=== PATIENT | male | born 1945 | race Caucasian/White ===

== ENCOUNTER 2017-08-02 07:04 | Day surgery (SDC) | payer MEDICARE, BC ==
[2017-08-02] MEDS ORDERED: fentaNYL 100 MCG/2 ML SDV ONE (08:21)
[2017-08-02] MEDS ORDERED: Propofol 200 MG/20 ML SDV ONE (08:21)
[2017-08-02] MEDS ORDERED: Sodium Chloride 0.9% 1,000 ML IV SCH (08:30)
[2017-08-02 10:39] VITALS: BP 154/75
--- NOTE | 2017-08-02 13:41 | OR ---
DATE OF PROCEDURE: 08/02/2017 PROCEDURE: Colonoscopy. FINDINGS: 5 mm polyp, completely removed using cold biopsy forceps, at approximately 70 cm (previous multiple colon resections). COMPLICATIONS: None. [employer]: None. PREOPERATIVE DIAGNOSIS: History of colorectal cancer. POSTOPERATIVE DIAGNOSIS: History of colorectal cancer. RISKS: Risks, benefits, alternatives and limitations including, but limited to infection, bleeding, and perforation were explained to the patient. PROCEDURE IN DETAIL: The patient was placed in left lateral decubitus position. Digital rectal exam was performed without abnormality. The scope was introduced and advanced atraumatically to the ileocecal valve. The scope was brought back to the colon and approximately at 70 cm, which is probably the descending colon; however, the patient has multiple colon surgeries, therefore, the anatomical nomenclature cannot be determined. Nonetheless, this was removed, and no other abnormalities were noted. No abnormalities on retroflexion. The patient tolerated the procedure well. No diverticulosis. No old or new blood. Gordon Edwards MD /[id number]
== END 2017-08-02 10:55 | disposition home or self-care (01) ==
LOC: JP.SDS 07:04
PROVIDERS: ATTEND Surgery
DX: Z12.11 Encounter for screening for malignant neoplasm of colon (principal); D12.4 Benign neoplasm of descending colon; I12.9 Hypertensive chronic kidney disease with stage 1 through stage 4 chronic kidney disease, or unspecified chronic kidney disease; N18.9 Chronic kidney disease, unspecified; F41.9 Anxiety disorder, unspecified; Z85.038 Personal history of other malignant neoplasm of large intestine; Z88.8 Allergy status to other drugs, medicaments and biological substances
CPT/HCPCS: 45380; 88305; J2704; J3010; J7040

== ENCOUNTER 2019-09-13 13:27 | Emergency (ER) | payer BC, MEDICARE ==
[2019-09-13 13:52] VITALS: BP 146/87; PULSE 85
--- NOTE | 2019-09-13 14:17 | EDM.PDOC ---
ED HPI GENERAL MEDICAL PROBLEM - General Chief Complaint: Upper Extremity Injury/Pain Stated Complaint: left forearm pain Time Seen by Provider: 09/13/19 14:12 Source of Information: Reports: Patient, RN Notes Reviewed History Limitations: Reports: No Limitations - History of Present Illness INITIAL COMMENTS - FREE TEXT/NARRATIVE: 74-year-old gentleman presents emergency department today complaint of intermittent pain in his arm as well his his leg on the left side. Known history of CVA last month is currently on daily aspirin did receive TPA therapy he has had no residual deficits from his stroke. He is concerned about a blood clot denies any difficulty breathing - Related Data Allergies Allergy/AdvReac Type Severity Reaction Status Date / Time No Known Allergies Allergy Verified 09/13/19 13:46 Home Meds: Home Meds Simvastatin [Zocor] 20 mg PO BEDTIME 09/15/14 [History] Gabapentin 300 mg PO BID 12/05/15 [History] Atenolol [Tenormin] 25 mg PO DAILY 07/31/17 [History] cephALEXin [Keflex] 250 mg PO BID 07/31/17 [History] Aspirin 1 tab PO DAILY 09/13/19 [History] Carbidopa/Levodopa [Carbidopa-Levodopa 25-100 Tab] 1 tab PO DAILY 09/13/19 [ History] Clopidogrel Bisulfate [Clopidogrel] 1 tab PO DAILY 09/13/19 [History] Donepezil HCl 1 tab PO BEDTIME 09/13/19 [History] amLODIPine Besylate [Amlodipine Besylate] 1 tab PO BEDTIME 09/13/19 [History] Past Medical History HEENT History: Reports: Hard of Hearing, Impaired Vision Cardiovascular History: Reports: High Cholesterol, Hypertension Gastrointestinal History: Reports: Chronic Constipation, Colon Polyp Genitourinary History: Reports: Chronic Renal Insuffiency Musculoskeletal History: Reports: Arthritis Other Musculoskeletal History: Bursitis l hip Neurological History: Reports: CVA Psychiatric History: Reports: PTSD Oncologic (Cancer) History: Reports: Colon Other Oncologic History: colon adenoma Dermatologic History: Reports: Other (See Below) Other Dermatologic History: acne - Infectious Disease History Infectious Disease History: Reports: Chicken Pox, Rheumatic Fever - Past Surgical History Cardiovascular Surgical History: Reports: None GI Surgical History: Reports: Colon, Hernia, Inguinal, Other (See Below) Musculoskeletal Surgical History: Reports: Arthroscopic Knee Other Musculoskeletal Surgeries/Procedures:: left knee Other Oncologic Surgeries/Procedures: Colon CA surgery x2 Dermatological Surgical History: Reports: None Social & Family History - Tobacco Use Smoking Status *Q: Never Smoker - Caffeine Use Caffeine Use: Reports: Coffee Review of Systems - Review of Systems Review Of Systems: See Below Respiratory: Reports: No Symptoms Cardiovascular: Reports: No Symptoms Musculoskeletal: Reports: Arm Pain, Leg Pain Neurological: Reports: No Symptoms ED EXAM, GENERAL - Physical Exam Exam: See Below Free Text/Narrative:: Examination of the left arm and left leg on appreciate any erythema there is no edema I cannot elicit any point tenderness radial pulses +2 there is no edema noted in the lower extremity Exam Limited By: No Limitations General Appearance: Alert, WD/WN, No Apparent Distress Respiratory/Chest: No Respiratory Distress Course - Vital Signs Last Recorded V/S: Last Vital Signs Temp 97.4 F 09/13/19 14:01 Pulse 85 09/13/19 14:01 Resp 13 09/13/19 14:01 BP 146/87 H 09/13/19 14:01 Pulse Ox 95 09/13/19 14:01 - Orders/Labs/Meds Labs: Laboratory Tests 09/13/19 Range/Units 14:27 D-Dimer, Quantitative 146 (0.0-400.0) ng/mL Departure - Departure Time of Disposition: 14:50 Disposition: Home, Self-Care 01 Condition: Good Clinical Impression: Arm pain Qualifiers: Laterality: left Qualified Code(s): M79.602 - Pain in left arm Leg pain Qualifiers: Laterality: left Qualified Code(s): M79.605 - Pain in left leg - Discharge Information Instructions: Musculoskeletal Pain Referrals: Art Cordero MD [Primary Care Provider] - Forms: ED Department Discharge Additional Instructions: Continue with both your aspirin and Plavix as prescribed, please followup with your primary care provider in 3-5 days if not better, please call return to the emergency department with worsening of symptoms. Sepsis Event Note - Evaluation Sepsis Screening Result: No Definite Risk - Focused Exam Vital Signs: Vital Signs Temp Pulse Resp BP Pulse Ox 09/13/19 14:01 97.4 F 85 13 146/87 H 95 09/13/19 13:51 97.4 F 85 13 146/87 H 95 Date Exam was Performed: 09/13/19 Time Exam was Performed: 14:49 - Assessment/Plan Plan: Assessment Acuity = acute Site and laterality = left upper and lower extremity pain intermittent Etiology = unknown Manifestations = none Location of injury = Home Lab values = d-dimer within normal limits at 146 Plan I did review lab work with him elected not to proceed with ultrasound at this time we will continue with both his aspirin and Plavix keep his regular follow- up appointment with his doctor This note was dictated using [employer] voice recognition software please call with any questions on syntax or grammar.
== END 2019-09-13 15:02 | disposition home or self-care (01) ==
LOC: JP.ED 13:27
DX: M79.602 Pain in left arm (principal); M79.605 Pain in left leg; I12.9 Hypertensive chronic kidney disease with stage 1 through stage 4 chronic kidney disease, or unspecified chronic kidney disease; N18.9 Chronic kidney disease, unspecified; E78.00 Pure hypercholesterolemia, unspecified; M19.90 Unspecified osteoarthritis, unspecified site; Z86.73 Personal history of transient ischemic attack (TIA), and cerebral infarction without residual deficits; Z79.899 Other long term (current) drug therapy; Z79.82 Long term (current) use of aspirin; Z79.02 Long term (current) use of antithrombotics/antiplatelets
CPT/HCPCS: 36415; 85379; 99282; 99283

== ENCOUNTER 2019-10-01 01:55 | Emergency (ER) | payer MEDICARE, OTHER ==
[2019-10-01] MEDS ORDERED: Lactated Ringers 1,000 ML IV ONE (02:41)
[2019-10-01] MEDS ORDERED: Sodium Chloride 0.9% 10 ML Syringe FLUSH PRN (02:41)
[2019-10-01] MEDS ORDERED: Ondansetron 4 MG/2 ML SDV IVPUSH ONE (02:41)
[2019-10-01] MEDS ORDERED: Oxymetazoline 0.05% Nasal Spray 30 ML Bottle NAS ONE (02:42)
--- NOTE | 2019-10-01 02:44 | EDM.PDOC ---
ED HPI GENERAL MEDICAL PROBLEM - General Chief Complaint: ENT Problem Stated Complaint: BLOODY NOSE Time Seen by Provider: 10/01/19 02:32 Source of Information: Reports: Patient, RN Notes Reviewed History Limitations: Reports: No Limitations - History of Present Illness INITIAL COMMENTS - FREE TEXT/NARRATIVE: 74-year-old gentleman presents emergency department today complaint of nosebleed , states been ongoing going for the last 2 hours is unable to get it stopped during the exam he did have a large bout of emesis with a syncopal event. He takes combination Plavix and blood thinner denies pain Pain Score (Numeric/FACES): 0 - Related Data Allergies Allergy/AdvReac Type Severity Reaction Status Date / Time No Known Allergies Allergy Verified 10/01/19 02:28 Home Meds: Home Meds Simvastatin [Zocor] 20 mg PO BEDTIME 09/15/14 [History] Gabapentin 300 mg PO BID 12/05/15 [History] cephALEXin [Keflex] 250 mg PO BID 07/31/17 [History] Aspirin 1 tab PO DAILY 09/13/19 [History] Carbidopa/Levodopa [Carbidopa-Levodopa 25-100 Tab] 1 tab PO DAILY 09/13/19 [ History] Clopidogrel Bisulfate [Clopidogrel] 75 mg PO DAILY 09/13/19 [History] amLODIPine Besylate [Amlodipine Besylate] 5 mg PO BEDTIME 09/13/19 [History] Cyclobenzaprine [Flexeril] 10 mg PO ASDIRECTED PRN 10/01/19 [History] Past Medical History HEENT History: Reports: Hard of Hearing, Impaired Vision Cardiovascular History: Reports: High Cholesterol, Hypertension Gastrointestinal History: Reports: Chronic Constipation, Colon Polyp Genitourinary History: Reports: Chronic Renal Insuffiency Musculoskeletal History: Reports: Arthritis Other Musculoskeletal History: Bursitis l hip Neurological History: Reports: CVA Psychiatric History: Reports: PTSD Oncologic (Cancer) History: Reports: Colon Other Oncologic History: colon adenoma Dermatologic History: Reports: Other (See Below) Other Dermatologic History: acne - Infectious Disease History Infectious Disease History: Reports: Chicken Pox, Rheumatic Fever - Past Surgical History Cardiovascular Surgical History: Reports: None GI Surgical History: Reports: Colon, Hernia, Inguinal, Other (See Below) Musculoskeletal Surgical History: Reports: Arthroscopic Knee Other Musculoskeletal Surgeries/Procedures:: left knee Other Oncologic Surgeries/Procedures: Colon CA surgery x2 Dermatological Surgical History: Reports: None Social & Family History - Caffeine Use Caffeine Use: Reports: Coffee ED ROS ENT - Review of Systems Review Of Systems: See Below Constitutional: Reports: No Symptoms HEENT: Reports: Nosebleed Respiratory: Reports: No Symptoms Cardiovascular: Reports: Lightheadedness, Syncope GI/Abdominal: Reports: No Symptoms ED EXAM, ENT - Physical Exam Exam: See Below Text/Narrative:: Blood is appreciated both nares small amount of blood is appreciated in the posterior pharynx lungs are clear heart is regular Exam Limited By: No Limitations General Appearance: Alert, Mild Distress Respiratory/Chest: No Respiratory Distress, Lungs Clear, Normal Breath Sounds, No Accessory Muscle Use, Chest Non-Tender Cardiovascular: Regular Rate, Rhythm, No Murmur ED ENT PROCEDURES - Epistaxis Procedure Indication: Epistaxis Recent anticoagulants/antiplatlets: Yes Uncontrolled HTN: No Recent septal/nasal surgery: No Site of bleeding: Right Nare Clearing of clots: Patient Blew Nose, Suction Anterior Packing: Nasal Tampon Posterior packing: Long Inflatable Nasal Tampon Complications: No Course - Vital Signs Last Recorded V/S: Last Vital Signs Temp 95.5 F 10/01/19 02:56 Pulse 77 10/01/19 02:56 Resp 16 10/01/19 02:56 BP 146/87 H 10/01/19 02:56 Pulse Ox 93 L 10/01/19 02:56 - Orders/Labs/Meds Orders: Active Orders 24 hr Category Date Time Status Peripheral IV Care [RC] . DIRECTED Care 10/01/19 02:41 Active Sodium Chloride 0.9% [Saline Flush] Med 10/01/19 02:41 Active 10 ml FLUSH ASDIRECTED PRN Peripheral IV Insertion Adult [OM.PC] Urgent Oth 10/01/19 02:41 Ordered Medication Orders Sodium Chloride (Saline Flush) 10 ml FLUSH ASDIRECTED PRN PRN Reason: Keep Vein Open Last Admin: 10/01/19 03:05 Dose: 10 ml Labs: Laboratory Tests 10/01/19 10/01/19 10/01/19 Range/Units 02:50 02:50 02:50 WBC 7.2 (4.5-11.0) K/uL RBC 4.65 (4.30-5.90) M/uL Hgb 14.5 D (12.0-15.0) g/dL Hct 43.7 (40.0-54.0) % MCV 94 (80-98) fL MCH 31 (27-31) pg MCHC 33 (32-36) % Plt Count 248 (150-400) K/uL Neut % (Auto) 56 (36-66) % Lymph % (Auto) 35 (24-44) % [place] % (Auto) 8 H (2-6) % Eos % (Auto) 2 (2-4) % Baso % (Auto) 0 (0-1) % PT 10.3 (9.5-12.0) sec INR 0.95 (0.80-1.20) Sodium 141 (140-148) mmol/L Potassium 3.7 (3.6-5.2) mmol/L Chloride 105 (100-108) mmol/L Carbon Dioxide 24 (21-32) mmol/L Anion Gap 12.4 (5.0-14.0) mmol/L BUN 20 H (7-18) mg/dL Creatinine 1.5 H (0.8-1.3) mg/dL Est Cr Clr Drug Dosing 43.21 mL/min Estimated GFR (MDRD) 46 L (>60) Glucose 186 H (74-106) mg/dL Calcium 9.0 (8.5-10.1) mg/dL Meds: Medications Generic Name Dose Route Start Last Admin Trade Name Manav PRN Reason Stop Dose Admin Sodium Chloride 10 ml 10/01/19 02:41 10/01/19 03:05 Saline Flush FLUSH 10 ml ASDIRECTED PRN Administration Keep Vein Open Discontinued Medications Generic Name Dose Route Start Last Admin Trade Name Manav PRN Reason Stop Dose Admin Lactated Ringer's 1,000 mls @ 999 mls/hr 10/01/19 02:41 10/01/19 02:59 Ringers, Lactated IV 10/01/19 03:41 999 mls/hr BOLUS ONE Administration Ondansetron HCl 4 mg 10/01/19 02:41 10/01/19 03:04 Zofran IVPUSH 10/01/19 02:42 4 mg ONETIME ONE Administration Oxymetazoline HCl 1 ml 10/01/19 02:42 10/01/19 03:05 Nasal Decongestant Timber VINEET 10/01/19 02:43 Not Given ONETIME ONE Departure - Departure Time of Disposition: 04:00 Disposition: Home, Self-Care 01 Condition: Fair Clinical Impression: Epistaxis - Discharge Information Instructions: Nosebleed, [id number] Referrals: Art Cordero MD [Primary Care Provider] - Forms: ED Department Discharge Additional Instructions: Stop taking your aspirin while the nasal tampon is in place, recommend follow- up primary care in the next 3 days for reevaluation at which time the nasal tampon should be removed, call or return to the emergency department worsening of symptoms Sepsis Event Note - Evaluation Sepsis Screening Result: No Definite Risk - Focused Exam Vital Signs: Vital Signs Temp Pulse Resp BP Pulse Ox 10/01/19 02:56 95.5 F 77 16 146/87 H 93 L 10/01/19 02:47 95.5 F 78 18 152/92 H 93 L 10/01/19 02:33 95.0 F L 92 16 148/94 H 96 10/01/19 02:10 92 16 148/94 H 96 Date Exam was Performed: 10/01/19 Time Exam was Performed: 03:59 - My Orders Last 24 Hours: My Active Orders 10/01/19 02:41 Peripheral IV Care [RC] . DIRECTED Sodium Chloride 0.9% [Saline Flush] 10 ml FLUSH ASDIRECTED PRN Peripheral IV Insertion Adult [OM.PC] Urgent - Assessment/Plan Last 24 Hours: My Active Orders 10/01/19 02:41 Peripheral IV Care [RC] . DIRECTED Sodium Chloride 0.9% [Saline Flush] 10 ml FLUSH ASDIRECTED PRN Peripheral IV Insertion Adult [OM.PC] Urgent Plan: Assessment Acuity = acute Site and laterality = epistaxis Etiology = unknown may be combination of Plavix and aspirin Manifestations = none Location of injury = Home Lab values = CBC, BMP unremarkable other than creatinine elevated 1.4 consistent with chronic renal failure stage G3 a INR 1 Plan Good improvement with 1 L fluids and placement of a nasal tampon recommend he stop his aspirin while the nasal tampon is in place follow-up primary care 3 to 5 days for reevaluation This note was dictated using [employer] recognition software please call with any questions on syntax or grammar.
[2019-10-01 03:12] VITALS: BP 146/87; PULSE 77
== END 2019-10-01 04:45 | disposition home or self-care (01) ==
LOC: JP.ED 01:55
DX: R04.0 Epistaxis (principal); E78.00 Pure hypercholesterolemia, unspecified; I12.9 Hypertensive chronic kidney disease with stage 1 through stage 4 chronic kidney disease, or unspecified chronic kidney disease; N18.9 Chronic kidney disease, unspecified; Z79.82 Long term (current) use of aspirin; Z86.73 Personal history of transient ischemic attack (TIA), and cerebral infarction without residual deficits; Z79.899 Other long term (current) drug therapy
CPT/HCPCS: 30901; 30903; 36415; 80048; 85025; 85610; 96361; 96374; 99282; 99283; J2405; J7120

== ENCOUNTER 2020-07-27 12:00 | Emergency (ER) | payer MEDICARE, OTHER ==
[2020-07-27] MEDS ORDERED: Sodium Chloride 0.9% 10 ML Syringe FLUSH PRN (12:46)
[2020-07-27] MEDS ORDERED: Ondansetron 4 MG/2 ML SDV IVPUSH ONE (12:47)
--- NOTE | 2020-07-27 12:49 | EDM.PDOC ---
ED HPI GENERAL MEDICAL PROBLEM - General Chief Complaint: Gastrointestinal Problem Stated Complaint: NAUSEA,DRY HEAVES Time Seen by Provider: 07/27/20 12:40 Source of Information: Reports: Patient, RN Notes Reviewed History Limitations: Reports: No Limitations - History of Present Illness INITIAL COMMENTS - FREE TEXT/NARRATIVE: 75-year-old gentleman presents emergency department with a complaint of dry heaves, he states the nausea and vomiting started this morning is progressively gotten worse he vomited so intense at one point in time he had a syncopal event he estimates for less than a minute. He has not had any fevers does have extensive history of abdominal surgeries following colon resection for cancer - Related Data Allergies Allergy/AdvReac Type Severity Reaction Status Date / Time No Known Allergies Allergy Verified 07/27/20 12:33 Home Meds: Home Meds Simvastatin [Zocor] 20 mg PO BEDTIME 09/15/14 [History] Gabapentin 300 mg PO BID 12/05/15 [History] Carbidopa/Levodopa [Carbidopa-Levodopa 25-100 Tab] 1 tab PO DAILY 09/13/19 [History] Aspirin 325 mg PO DAILY 07/27/20 [History] Citalopram Hydrobromide [Celexa] 10 mg PO DAILY 07/27/20 [History] Donepezil [Aricept] 5 mg PO BEDTIME 07/27/20 [History] rOPINIRole [Requip] 0.5 mg PO BEDTIME 07/27/20 [History] Past Medical History HEENT History: Reports: Hard of Hearing, Impaired Vision Cardiovascular History: Reports: High Cholesterol, Hypertension Gastrointestinal History: Reports: Chronic Constipation, Colon Polyp Genitourinary History: Reports: Chronic Renal Insuffiency Musculoskeletal History: Reports: Arthritis Other Musculoskeletal History: Bursitis l hip Neurological History: Reports: CVA Psychiatric History: Reports: PTSD Oncologic (Cancer) History: Reports: Colon Other Oncologic History: colon adenoma Dermatologic History: Reports: Other (See Below) Other Dermatologic History: acne - Infectious Disease History Infectious Disease History: Reports: Chicken Pox, Rheumatic Fever - Past Surgical History GI Surgical History: Reports: Colon, Hernia, Inguinal, Other (See Below) Other GI Surgeries/Procedures: Colon surgery x2 Musculoskeletal Surgical History: Reports: Arthroscopic Knee Other Musculoskeletal Surgeries/Procedures:: left knee Other Oncologic Surgeries/Procedures: Colon CA surgery x2 Social & Family History - Tobacco Use Tobacco Use Status *Q: Never Tobacco User - Caffeine Use Caffeine Use: Reports: Coffee - Recreational Drug Use Recreational Drug Use: No ED ROS GENERAL - Review of Systems Review Of Systems: See Below Constitutional: Reports: No Symptoms HEENT: Reports: No Symptoms Respiratory: Reports: No Symptoms Cardiovascular: Reports: No Symptoms GI/Abdominal: Reports: Abdominal Pain, Nausea, Vomiting : Reports: No Symptoms ED EXAM, GI/ABD - Physical Exam Exam: See Below Exam Limited By: No Limitations General Appearance: Alert, WD/WN, No Apparent Distress Neck: Normal Inspection, Supple, Non-Tender, Full Range of Motion Respiratory/Chest: No Respiratory Distress, Lungs Clear, Normal Breath Sounds, No Accessory Muscle Use, Chest Non-Tender Cardiovascular: Regular Rate, Rhythm, No Murmur GI/Abdominal Exam: Soft, Non-Tender Course - Vital Signs Last Recorded V/S: Last Vital Signs Temp 96 F L 07/27/20 12:32 Pulse 77 07/27/20 14:30 Resp 12 07/27/20 14:30 BP 151/94 H 07/27/20 14:30 Pulse Ox 97 07/27/20 14:30 - Orders/Labs/Meds Orders: Active Orders 24 hr Category Date Time Status EKG Documentation Completion [RC] ASDIRECTED Care 07/27/20 12:48 Active Peripheral IV Care [RC] . DIRECTED Care 07/27/20 12:46 Active Abdomen 1V Upright [CR] Urgent Exams 07/27/20 12:46 Taken Lactated Ringers [Ringers, Lactated] 1,000 ml Med 07/27/20 13:00 Active IV ASDIRECTED Lactated Ringers [Ringers, Lactated] 1,000 ml Med 07/27/20 14:30 Active IV BOLUS Sodium Chloride 0.9% [Saline Flush] Med 07/27/20 12:46 Active 10 ml FLUSH ASDIRECTED PRN Peripheral IV Insertion Adult [OM.PC] Urgent Oth 07/27/20 12:46 Ordered EKG 12 Lead [EK] Stat Ther 07/27/20 12:47 Ordered Medication Orders Lactated Ringer's (Ringers, Lactated) 1,000 mls @ 999 mls/hr IV ASDIRECTED LILY Last Admin: 07/27/20 12:59 Dose: 999 mls/hr Documented by: ABHIJEET Lactated Ringer's (Ringers, Lactated) 1,000 mls @ 999 mls/hr IV BOLUS ONE Stop: 07/27/20 15:30 Last Admin: 07/27/20 14:42 Dose: 999 mls/hr Documented by: ABHIJEET Sodium Chloride (Saline Flush) 10 ml FLUSH ASDIRECTED PRN PRN Reason: Keep Vein Open Last Admin: 07/27/20 12:58 Dose: 10 ml Documented by: ABHIJEET Labs: Laboratory Tests 07/27/20 07/27/20 07/27/20 Range/Units 13:00 13:00 13:00 WBC 6.5 (4.5-11.0) K/uL RBC 3.90 L (4.30-5.90) M/uL Hgb 13.0 (12.0-15.0) g/dL Hct 39.3 L (40.0-54.0) % MCV 101 H (80-98) fL MCH 33 H (27-31) pg MCHC 33 (32-36) % Plt Count 244 (150-400) K/uL Neut % (Auto) 84 H (36-66) % Lymph % (Auto) 11 L (24-44) % [place] % (Auto) 5 (2-6) % Eos % (Auto) 0 L (2-4) % Baso % (Auto) 0 (0-1) % Sodium 143 (140-148) mmol/L Potassium 4.6 (3.6-5.2) mmol/L Chloride 107 (100-108) mmol/L Carbon Dioxide 29 (21-32) mmol/L Anion Gap 7.5 (5.0-14.0) mmol/L BUN 18 (7-18) mg/dL Creatinine 1.7 H (0.8-1.3) mg/dL Est Cr Clr Drug Dosing 38.77 mL/min Estimated GFR (MDRD) 39 L (>60) Glucose 158 H (74-106) mg/dL Lactic Acid 1.6 (0.4-2.0) mmol/L Calcium 8.8 (8.5-10.1) mg/dL Total Bilirubin 0.7 (0.2-1.0) mg/dL AST 23 (15-37) U/L ALT 34 (12-78) U/L Alkaline Phosphatase 83 (46-116) U/L Troponin I < 0.017 (0.000-0.056) ng/mL Total Protein 7.1 (6.4-8.2) g/dL Albumin 3.8 (3.4-5.0) g/dL Globulin 3.3 (2.3-3.5) g/dL Albumin/Globulin Ratio 1.2 (1.2-2.2) Lipase 37 L (73-393) U/L Urine Color (YELLOW) Urine Appearance (CLEAR) Urine pH (5.0-8.0) Ur Specific [place] (1.008-1.030) Urine Protein (NEGATIVE) mg/dL Urine Glucose (UA) (NEGATIVE) mg/dL Urine Ketones (NEGATIVE) mg/dL Urine Occult Blood (NEGATIVE) Urine Nitrite (NEGATIVE) Urine Bilirubin (NEGATIVE) Urine Urobilinogen (0.2-1.0) EU/dL Ur Leukocyte Esterase (NEGATIVE) Urine RBC (0-5) Urine WBC (0-5) Ur Epithelial Cells Amorphous Sediment Urine Bacteria Urine Mucus 07/27/20 Range/Units 14:42 WBC (4.5-11.0) K/uL RBC (4.30-5.90) M/uL Hgb (12.0-15.0) g/dL Hct (40.0-54.0) % MCV (80-98) fL MCH (27-31) pg MCHC (32-36) % Plt Count (150-400) K/uL Neut % (Auto) (36-66) % Lymph % (Auto) (24-44) % [place] % (Auto) (2-6) % Eos % (Auto) (2-4) % Baso % (Auto) (0-1) % Sodium (140-148) mmol/L Potassium (3.6-5.2) mmol/L Chloride (100-108) mmol/L Carbon Dioxide (21-32) mmol/L Anion Gap (5.0-14.0) mmol/L BUN (7-18) mg/dL Creatinine (0.8-1.3) mg/dL Est Cr Clr Drug Dosing mL/min Estimated GFR (MDRD) (>60) Glucose (74-106) mg/dL Lactic Acid (0.4-2.0) mmol/L Calcium (8.5-10.1) mg/dL Total Bilirubin (0.2-1.0) mg/dL AST (15-37) U/L ALT (12-78) U/L Alkaline Phosphatase (46-116) U/L Troponin I (0.000-0.056) ng/mL Total Protein (6.4-8.2) g/dL Albumin (3.4-5.0) g/dL Globulin (2.3-3.5) g/dL Albumin/Globulin Ratio (1.2-2.2) Lipase (73-393) U/L Urine Color Yellow (YELLOW) Urine Appearance Slightly cloudy A (CLEAR) Urine pH 7.5 (5.0-8.0) Ur Specific [place] 1.020 (1.008-1.030) Urine Protein Negative (NEGATIVE) mg/dL Urine Glucose (UA) Negative (NEGATIVE) mg/dL Urine Ketones Negative (NEGATIVE) mg/dL Urine Occult Blood Negative (NEGATIVE) Urine Nitrite Negative (NEGATIVE) Urine Bilirubin Negative (NEGATIVE) Urine Urobilinogen 2.0 H (0.2-1.0) EU/dL Ur Leukocyte Esterase Negative (NEGATIVE) Urine RBC 0-5 (0-5) Urine WBC 0-5 (0-5) Ur Epithelial Cells Not seen Amorphous Sediment Few Urine Bacteria Not seen Urine Mucus Rare Meds: Medications Generic Name Dose Route Start Last Admin Trade Name Freq PRN Reason Stop Dose Admin Lactated Ringer's 1,000 mls @ 999 mls/hr 07/27/20 13:00 07/27/20 12:59 Ringers, Lactated IV 999 mls/hr ASDIRECTED LILY Administration Lactated Ringer's 1,000 mls @ 999 mls/hr 07/27/20 14:30 07/27/20 14:42 Ringers, Lactated IV 07/27/20 15:30 999 mls/hr BOLUS ONE Administration Sodium Chloride 10 ml 07/27/20 12:46 07/27/20 12:58 Saline Flush FLUSH 10 ml ASDIRECTED PRN Administration Keep Vein Open Discontinued Medications Generic Name Dose Route Start Last Admin Trade Name Freq PRN Reason Stop Dose Admin Ondansetron HCl 4 mg 07/27/20 12:47 07/27/20 12:58 Zofran IVPUSH 07/27/20 12:48 4 mg ONETIME ONE Administration Departure - Departure Time of Disposition: 15:12 Disposition: Home, Self-Care 01 Condition: Fair Clinical Impression: Gastroenteritis - Discharge Information Instructions: Viral Gastroenteritis, Adult, [id number] Referrals: Art Cordero MD [Primary Care Provider] - Forms: ED Department Discharge Additional Instructions: Continue to push fluids, use Zofran as needed for nausea vomiting symptoms, please followup with your primary care provider in 3-5 days if not better, please call return to the emergency department with worsening of symptoms. Sepsis Event Note (ED) - Evaluation Sepsis Screening Result: No Definite Risk - Focused Exam Vital Signs: Vital Signs Temp Pulse Resp BP Pulse Ox 07/27/20 14:30 77 12 151/94 H 97 07/27/20 14:00 68 13 148/82 H 94 L 07/27/20 13:31 68 17 143/80 H 95 07/27/20 13:00 64 13 139/83 93 L 07/27/20 12:32 96 F L 74 20 153/84 H 95 - My Orders Last 24 Hours: My Active Orders 07/27/20 12:46 Peripheral IV Care [RC] . DIRECTED Abdomen 1V Upright [CR] Urgent Sodium Chloride 0.9% [Saline Flush] 10 ml FLUSH ASDIRECTED PRN Peripheral IV Insertion Adult [OM.PC] Urgent 07/27/20 12:47 EKG 12 Lead [EK] Stat 07/27/20 12:48 EKG Documentation Completion [RC] ASDIRECTED 07/27/20 13:00 Lactated Ringers [Ringers, Lactated] 1,000 ml IV ASDIRECTED 07/27/20 14:30 Lactated Ringers [Ringers, Lactated] 1,000 ml IV BOLUS - Assessment/Plan Last 24 Hours: My Active Orders 07/27/20 12:46 Peripheral IV Care [RC] . DIRECTED Abdomen 1V Upright [CR] Urgent Sodium Chloride 0.9% [Saline Flush] 10 ml FLUSH ASDIRECTED PRN Peripheral IV Insertion Adult [OM.PC] Urgent 07/27/20 12:47 EKG 12 Lead [EK] Stat 07/27/20 12:48 EKG Documentation Completion [RC] ASDIRECTED 07/27/20 13:00 Lactated Ringers [Ringers, Lactated] 1,000 ml IV ASDIRECTED 07/27/20 14:30 Lactated Ringers [Ringers, Lactated] 1,000 ml IV BOLUS Plan: Assessment Acuity = acute Site and laterality = gastroenteritis Etiology = probably viral Manifestations = nausea and vomiting Location of injury = Home Lab values = CBC unremarkable creatinine elevated 1.7 consistent with acute renal failure stage G3 B, urinalysis unremarkable, plain film of the abdomen shows stool and gas nonspecific bowel gas pattern official read radiologist pending Plan Good improvement with Zofran 2 L of fluids discharged home with Zofran 1 tab p.o. 3 times daily as needed ODT 4 mg size total #5 follow-up primary care 3 to 5 days if not better This note was dictated using [employer] voice recognition software please call with any questions on syntax or grammar.
[2020-07-27] MEDS ORDERED: Lactated Ringers 1,000 ML IV SCH (13:00)
[2020-07-27] MEDS ORDERED: Lactated Ringers 1,000 ML IV ONE (14:30)
[2020-07-27 14:37] VITALS: BP 151/94; PULSE 77
--- NOTE | 2020-07-27 15:13 | CR ---
Abdomen 1V Upright CLINICAL HISTORY: Nausea and vomiting FINDINGS: Small intestinal configuration is nonacute. There is moderate stool throughout the colon. No free air is seen. There is some patchy density in the left lung base. IMPRESSION: Nonacute intestinal gas pattern Patchy density in the left lung base. Infiltrate not excluded
== END 2020-07-27 15:51 | disposition home or self-care (01) ==
LOC: JP.ED 12:00
DX: K52.9 Noninfective gastroenteritis and colitis, unspecified (principal); I12.9 Hypertensive chronic kidney disease with stage 1 through stage 4 chronic kidney disease, or unspecified chronic kidney disease; N18.9 Chronic kidney disease, unspecified; E78.00 Pure hypercholesterolemia, unspecified; M19.90 Unspecified osteoarthritis, unspecified site; Z79.82 Long term (current) use of aspirin; Z79.899 Other long term (current) drug therapy
CPT/HCPCS: 36415; 74018; 74018-26; 80053; 81001; 83605; 83690; 84484; 85025; 93005; 96374; 99284-25; J2405; J7120

== ENCOUNTER 2020-12-07 11:06 | Emergency (ER) | payer MEDICARE, OTHER ==
[2020-12-07 11:09] VITALS: BP 178/112; PULSE 89
--- NOTE | 2020-12-07 11:55 | EDM.PDOC ---
ED HPI GENERAL MEDICAL PROBLEM - General Chief Complaint: Neurological Problem Stated Complaint: DIZZY Time Seen by Provider: 12/07/20 11:50 Source of Information: Reports: Patient, Old Records, Police, RN Notes Reviewed History Limitations: Reports: Physical Impairment - History of Present Illness INITIAL COMMENTS - FREE TEXT/NARRATIVE: 75-year-old gentleman was brought in by law enforcement for mental evaluation, he was initially pulled over by law enforcement for failure to stop at a stoplight and [place] per their report however there is no stoplight [place]. Also description of failure to cloth covered helmet puller. When I questioned him about this he states he was in [place] he was unsure of where to cloth covered helmet puller on the [address]. There was a report from law enforcement that when he was told to turn off his vehicle he did not shifted into park and they were concerned about his mental status. However when I questioned him about this he states that when he puts his vehicle in park often times the indicator does not show the correct position of the transmission. 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 Review of his past medical history he does have a diagnosis of mild cognitive impairment takes a combination of Sinemet and Requip for his restless legs. At the time I interviewed him he is slow to respond but answers questions appropriately is alert orientated can carry on a conversation has no difficulties follows commands appropriately has no complaints at this time. States he was on his way to see his primary care physician for further evaluation of dizziness that has been going on for about 5 weeks unfortunately missed that evaluation due to the encounter he had with law enforcement. He denies dizziness at this time. Does have a remote history of cerebrovascular accident - Related Data Allergies Allergy/AdvReac Type Severity Reaction Status Date / Time No Known Allergies Allergy Verified 12/07/20 11:23 Home Meds: Home Meds Simvastatin [Zocor] 20 mg PO BEDTIME 09/15/14 [History] Gabapentin 300 mg PO BID 12/05/15 [History] Carbidopa/Levodopa [Carbidopa-Levodopa 25-100 Tab] 1 tab PO DAILY 09/13/19 [History] Aspirin 325 mg PO DAILY 07/27/20 [History] Citalopram Hydrobromide [Celexa] 10 mg PO DAILY 07/27/20 [History] Donepezil [Aricept] 5 mg PO BEDTIME 07/27/20 [History] rOPINIRole [Requip] 0.5 mg PO BEDTIME 07/27/20 [History] Ferrous Sulfate 325 mg PO BIDMEALS 12/07/20 [History] cephALEXin [Keflex] 250 mg PO BID 12/07/20 [History] Past Medical History HEENT History: Reports: Hard of Hearing, Impaired Vision Cardiovascular History: Reports: High Cholesterol, Hypertension Gastrointestinal History: Reports: Chronic Constipation, Colon Polyp Genitourinary History: Reports: Chronic Renal Insuffiency, Urinary Incontinence, Other (See Below) Other Genitourinary History: urge incontinence Musculoskeletal History: Reports: Arthritis, Other (See Below) Other Musculoskeletal History: Bursitis l hip, restless legs Neurological History: Reports: CVA, Other (See Below) Other Neuro History: mild cognitive impairment. Psychiatric History: Reports: PTSD Oncologic (Cancer) History: Reports: Colon Other Oncologic History: colon adenoma Dermatologic History: Reports: Other (See Below) Other Dermatologic History: acne - Infectious Disease History Infectious Disease History: Reports: Chicken Pox, Rheumatic Fever - Past Surgical History Head Surgeries/Procedures: Reports: None HEENT Surgical History: Reports: None Cardiovascular Surgical History: Reports: None GI Surgical History: Reports: Colon, Hernia, Inguinal, Other (See Below) Other GI Surgeries/Procedures: Colon surgery x2 Neurological Surgical History: Reports: None Musculoskeletal Surgical History: Reports: Arthroscopic Knee Other Musculoskeletal Surgeries/Procedures:: left knee Oncologic Surgical History: Reports: None Other Oncologic Surgeries/Procedures: Colon CA surgery x2 Dermatological Surgical History: Reports: None Social & Family History - Tobacco Use Tobacco Use Status *Q: Never Tobacco User Second Hand Smoke Exposure: No - Caffeine Use Caffeine Use: Reports: Coffee - Recreational Drug Use Recreational Drug Use: No ED ROS GENERAL - Review of Systems Review Of Systems: See Below Constitutional: Reports: No Symptoms HEENT: Reports: No Symptoms Respiratory: Reports: No Symptoms Cardiovascular: Reports: No Symptoms GI/Abdominal: Reports: No Symptoms : Reports: No Symptoms Musculoskeletal: Reports: No Symptoms ED EXAM, NEURO - Physical Exam Exam: See Below Text/Narrative:: Cranial nerves II test with pupillary light reflex 3 mm to 2 mm bilaterally, CN III test pupillary constriction, lid elevation and eye abduction bilaterally, CN IV downward movement of eyes bilaterally, CN V good jaw movement, CN lateral deviation of the eyes bilaterally to finger movement, CN VII symmetrical smile shows teeth without difficulty, CN VIII pass finger rub to ears bilaterally, CN IX adequate voice and tone, CN X adequate voice and tone no difficulty swallowing, CN XI can shrug shoulders without difficulty, CN XII can stick tongue out without difficulty, cranial nerves II to XII intact as tested, power is 5 out 5 in upper and lower extremities, can do finger to nose without difficulty, no dysdiadochokinesis, no difficulty with rapid alternating movements can do [id number] without difficulty, Romberg is negative, has adequate gait can do heel to toe, has some difficulty with heel-to-toe walk , no focal neurologic deficit Exam Limited By: No Limitations General Appearance: Alert, WD/WN, No Apparent Distress Respiratory/Chest: No Respiratory Distress, Lungs Clear, Normal Breath Sounds, No Accessory Muscle Use, Chest Non-Tender Cardiovascular: Regular Rate, Rhythm, No Murmur Course - Vital Signs Last Recorded V/S: Last Vital Signs Temp 97.9 F 12/07/20 11:36 Pulse 89 12/07/20 11:36 Resp 16 12/07/20 11:36 BP 178/112 H 12/07/20 11:36 Pulse Ox 95 12/07/20 11:36 Departure - Departure Time of Disposition: 11:55 Disposition: Home, Self-Care 01 Condition: Fair Clinical Impression: Evaluation by medical service required - Discharge Information Referrals: PCP,None [Primary Care Provider] - Additional Instructions: Please try and keep your follow-up appointment with your primary care provider today call or return to the emergency department worsening of symptoms Sepsis Event Note (ED) - Evaluation Sepsis Screening Result: No Definite Risk - Focused Exam Vital Signs: Vital Signs Temp Pulse Resp BP Pulse Ox 12/07/20 11:36 97.9 F 89 16 178/112 H 95 12/07/20 11:08 97.9 F 89 16 178/112 H 95 - Assessment/Plan Plan: Assessment Acuity = acute Site and laterality = evaluation for confusion Etiology = unknown Manifestations = none Location of injury = Home Lab values = none Plan After interviewing him and discussion with the events that occurred I do not appreciate any mental confusion at this time given his known baseline. I talked to him about further evaluation he declined would just like to follow-up with his primary care for further evaluation of his dizziness This note was dictated using [employer] voice recognition software please call with any questions on syntax or grammar.
== END 2020-12-07 12:22 | disposition home or self-care (01) ==
LOC: JP.ED 11:06
DX: Z00.8 Encounter for other general examination (principal); E78.00 Pure hypercholesterolemia, unspecified; I12.9 Hypertensive chronic kidney disease with stage 1 through stage 4 chronic kidney disease, or unspecified chronic kidney disease; N18.9 Chronic kidney disease, unspecified; M19.90 Unspecified osteoarthritis, unspecified site; G25.81 Restless legs syndrome; Z79.82 Long term (current) use of aspirin; Z86.73 Personal history of transient ischemic attack (TIA), and cerebral infarction without residual deficits
CPT/HCPCS: 99284

== ENCOUNTER 2021-04-12 06:47 | Day surgery (SDC) | payer MEDICARE, OTHER ==
[2021-04-12] MEDS ORDERED: Sodium Chloride 0.9% 1,000 ML IV SCH (07:30)
[2021-04-12] MEDS ORDERED: Midazolam 1 MG/ML 2 ML SDV ONE (07:31)
[2021-04-12] MEDS ORDERED: Propofol 200 MG/20 ML SDV ONE (07:31)
[2021-04-12] MEDS ORDERED: fentaNYL 100 MCG/2 ML SDV ONE (07:31)
[2021-04-12 09:51] VITALS: BP 131/75; PULSE 63
--- NOTE | 2021-04-12 10:53 | OR ---
DATE OF PROCEDURE: 04/12/2021 SURGEON: Gordon Edwards MD PROCEDURE: Colonoscopy. FINDINGS: Normal colonoscopy. COMPLICATIONS: None. TESTING MANAGER: None. ANESTHESIA: MAC. PREOPERATIVE DIAGNOSIS: History of colorectal cancer x2. POSTOPERATIVE DIAGNOSIS: History of colorectal cancer x2. RISKS: Risks, benefits, alternatives, and limitations including but not limited to infection, bleeding, perforation, false positives and false negatives were explained to the patient and he wished to proceed. PROCEDURE IN DETAIL: The patient was placed in left lateral decubitus position. Digital rectal exam was performed without abnormality. Scope was introduced and advanced atraumatically to the ileocecal valve. A photo was taken of the appendiceal orifice. Scope was brought back through the entire colon. No abnormalities were noted. No colon polyps. No masses. With respect to evaluation of anastomosis, there was normal architecture without any abnormalities. No abnormalities on retroflexion. Greater than 8 minutes was spent removing the scope. The prep was acceptable, approximately 95% of the luminal surface could be seen. The patient tolerated the procedure well. Gordon Edwards MD /[id number]
== END 2021-04-12 10:25 | disposition home or self-care (01) ==
LOC: JP.SDS 06:47
PROVIDERS: ATTEND Surgery
DX: Z12.11 Encounter for screening for malignant neoplasm of colon (principal); N18.9 Chronic kidney disease, unspecified; Z85.038 Personal history of other malignant neoplasm of large intestine; Z85.048 Personal history of other malignant neoplasm of rectum, rectosigmoid junction, and anus; Z88.8 Allergy status to other drugs, medicaments and biological substances
CPT/HCPCS: G0105; J2704; J3010; J7030; J2250

== ENCOUNTER 2022-06-21 17:02 | Observation (INO) | payer MEDICARE, OTHER ==
[2022-06-21] MEDS ORDERED: Acetaminophen 325 MG Tab PO PRN (17:49)
[2022-06-21] MEDS ORDERED: Magnesium Hydroxide 400 MG/5 ML Susp 30 ML Cup PO PRN (17:49)
[2022-06-21] MEDS ORDERED: Melatonin 3 MG Tab PO PRN (17:49)
[2022-06-21] MEDS ORDERED: Ondansetron 4 MG/2 ML SDV IV PRN (17:49)
[2022-06-21] MEDS ORDERED: Ondansetron 4 MG Tab.DIS PO PRN (17:49)
[2022-06-21] MEDS ORDERED: Phenol/Sodium Phenolate Spray 180 ML Bottle MUCMEM PRN (17:52)
[2022-06-21 17:53] LABS: ESTIMATED GFR 34 mL/min (>60)
[2022-06-21] MEDS ORDERED: Sodium Chloride 0.9% 10 ML Syringe FLUSH PRN (17:56)
[2022-06-21] MEDS ORDERED: REMDESIVIR 200 MG in Sodium Chloride 0.9% 250 ML IV ONE (18:00)
[2022-06-21] MEDS ORDERED: Carbidopa/Levodopa 25-100 MG Tab PO PRN (18:24)
[2022-06-21] MEDS: Enoxaparin 40 MG/0.4 ML Syringe SUBCUT SCH (18:47)
[2022-06-21] MEDS: Sodium Chloride 0.9% 1,000 ML IV SCH (19:27)
[2022-06-21] MEDS: Benzocaine/Cetylpyridinium/Menthol Lozenge MUCMEM PRN (19:27)
[2022-06-21] MEDS: Gabapentin 300 MG Cap PO SCH (20:44)
[2022-06-21] MEDS: atorvaSTATin 10 MG Tab PO SCH (20:44)
[2022-06-21] MEDS: Cephalexin 250 MG Cap PO SCH (20:44)
[2022-06-21] MEDS: Donepezil 10 MG Tab PO SCH (20:44)
[2022-06-21] MEDS: rOPINIRole 0.5 MG Tab PO SCH (20:44)
[2022-06-22] MEDS: Sodium Chloride 0.9% 1,000 ML IV SCH (05:23)
[2022-06-22] MEDS: Gabapentin 300 MG Cap PO SCH ×2 (09:01→20:35)
[2022-06-22] MEDS: Cephalexin 250 MG Cap PO SCH ×2 (09:01→20:35)
[2022-06-22] MEDS: Citalopram 10 MG Tab PO SCH (09:01)
[2022-06-22] MEDS: Cyanocobalamin (Vitamin B12) 1,000 MCG Tab PO SCH (09:01)
[2022-06-22] MEDS: Aspirin 325 MG Tab.EC PO SCH (09:01)
[2022-06-22] MEDS: Lidocaine 2% Viscous Solution 15 ML UD PO PRN ×3 (13:21→22:00)
[2022-06-22] MEDS: Benzocaine/Cetylpyridinium/Menthol Lozenge MUCMEM PRN (13:21)
[2022-06-22] MEDS: Enoxaparin 40 MG/0.4 ML Syringe SUBCUT SCH (17:21)
[2022-06-22] MEDS: REMDESIVIR 100 MG in Sodium Chloride 0.9% 100 ML IV SCH (17:22)
[2022-06-22] MEDS: atorvaSTATin 10 MG Tab PO SCH (20:34)
[2022-06-22] MEDS: Donepezil 10 MG Tab PO SCH (20:34)
[2022-06-22] MEDS: rOPINIRole 0.5 MG Tab PO SCH (20:35)
[2022-06-23] MEDS: Lidocaine 2% Viscous Solution 15 ML UD PO PRN ×3 (02:04→21:07)
[2022-06-23 05:10] LABS: ESTIMATED GFR 48 mL/min (>60)
[2022-06-23] MEDS: Citalopram 10 MG Tab PO SCH (08:24)
[2022-06-23] MEDS: Cyanocobalamin (Vitamin B12) 1,000 MCG Tab PO SCH (08:25)
[2022-06-23] MEDS: Aspirin 325 MG Tab.EC PO SCH (08:25)
[2022-06-23] MEDS: Gabapentin 300 MG Cap PO SCH ×2 (08:25→21:09)
[2022-06-23] MEDS: Cephalexin 250 MG Cap PO SCH ×2 (08:25→21:08)
[2022-06-23] MEDS: REMDESIVIR 100 MG in Sodium Chloride 0.9% 100 ML IV SCH (17:51)
[2022-06-23] MEDS: Enoxaparin 40 MG/0.4 ML Syringe SUBCUT SCH (17:51)
[2022-06-23] MEDS: Donepezil 10 MG Tab PO SCH (21:08)
[2022-06-23] MEDS: rOPINIRole 0.5 MG Tab PO SCH (21:08)
[2022-06-23] MEDS: atorvaSTATin 10 MG Tab PO SCH (21:09)
[2022-06-24 05:32] LABS: ESTIMATED GFR 48 mL/min (>60)
[2022-06-24 08:01] VITALS: BP 145/62; PULSE 45
[2022-06-24] MEDS: Cyanocobalamin (Vitamin B12) 1,000 MCG Tab PO SCH (09:43)
[2022-06-24] MEDS: Gabapentin 300 MG Cap PO SCH (09:43)
[2022-06-24] MEDS: Aspirin 325 MG Tab.EC PO SCH (09:43)
[2022-06-24] MEDS: Cephalexin 250 MG Cap PO SCH (09:43)
[2022-06-24] MEDS: Citalopram 10 MG Tab PO SCH (09:44)
== END 2022-06-24 13:02 | disposition home health service (06) ==
LOC: JP.MS 17:02
PROVIDERS: ADMIT Internal Medicine; ATTEND Internal Medicine
DX: U07.1 COVID-19 (principal); I12.9 Hypertensive chronic kidney disease with stage 1 through stage 4 chronic kidney disease, or unspecified chronic kidney disease; N18.32 Chronic kidney disease, stage 3b; K59.09 Other constipation; M19.90 Unspecified osteoarthritis, unspecified site; I63.9 Cerebral infarction, unspecified; E78.00 Pure hypercholesterolemia, unspecified; Z79.899 Other long term (current) drug therapy; Z88.8 Allergy status to other drugs, medicaments and biological substances; Z79.01 Long term (current) use of anticoagulants; Z98.890 Other specified postprocedural states
CPT/HCPCS: 36415; 80053; 85025; 85379; 86140; 96361; 96365; 96366; 96372; 97110; 97116; 97140; 97161; 99217; 99219; 99225; A9270; G0378; G0379; J1650; J3490; J7030; J7050; Q0162

== ENCOUNTER 2024-12-08 08:47 | Day surgery (SDC) | payer MEDICARE, OTHER ==
[2024-12-08] MEDS: Lactated Ringers 1,000 ML IV SCH (09:34)
[2024-12-08] MEDS ORDERED: Propofol 200 MG/20 ML SDV ONE (09:52)
[2024-12-08] MEDS ORDERED: fentaNYL 50 MCG/ML SDV ONE (09:53)
[2024-12-08 11:51] VITALS: BP 164/85; PULSE 55
== END 2024-12-08 12:00 | disposition home or self-care (01) ==
LOC: JP.SDS 08:47
PROVIDERS: ATTEND Surgery
DX: Z12.11 Encounter for screening for malignant neoplasm of colon (principal); D12.3 Benign neoplasm of transverse colon; Z85.038 Personal history of other malignant neoplasm of large intestine; N18.9 Chronic kidney disease, unspecified; Z91.048 Other nonmedicinal substance allergy status
CPT/HCPCS: 00811; 45385; J2704; J3010; J7120